=== PATIENT | male | born 1985 | race Two or more races ===

== ENCOUNTER → 2022-01-12 07:23 | Outpatient (CLI) | payer OTHER ==
[~2022-01-12 07:23] MED LIST: PANADOL EXTRA500 MG; PREVACID15 MG
== END | disposition home or self-care (01) ==
LOC: LAB 07:23
PROVIDERS: ATTEND Obstetrics & Gynecology
DX: Z20.828 Contact with and (suspected) exposure to other viral communicable diseases (principal); Z20.818 Contact with and (suspected) exposure to other bacterial communicable diseases